=== PATIENT | male | born 1955 | race African-American/Black ===

== ENCOUNTER 2024-04-30 03:35 | Inpatient (IN) | payer OTHER ==
[~2024-04-30] VITALS: Ht 320 cm; Wt 64.9 kg
[2024-04-30 05:10] LABS: BASOPHILS % 0.4 % (0.0-2.0); HEMATOCRIT. 40.4 % (42.0-52.0); HEMOGLOBIN. 13.2 g/dL (14.0-18.0); LYMPHOCYTES % 10.3 % (20.0-50.0); MEAN CORPUSCULAR HEMOGLOBIN 28.9 pg (28.0-32.0); MEAN CORPUSCULAR HGB CONC 32.6 g/dL (31.0-37.0); MEAN CORPUSCULAR VOLUME 88.5 fL (80.0-94.0); MEAN PLATELET VOLUME 8.8 fl (7.4-10.4); MONOCYTES % 2.7 % (2.0-8.0); NEUTROPHILS % 86.6 % (40.0-76.0); PLATELET 295 x1000/uL (130-400); RED BLOOD CELL COUNT 4.56 mill/uL (4.7-6.1); RED CELL DISTRIBUTION WIDTH 14.8 % (11.6-14.6); WHITE BLOOD COUNT 13.6 x1000/uL (4.5-11.0)
[2024-04-30 05:19] LABS: CHLORIDE 103 mEq/L (98-107); POTASSIUM 3.5 mEq/L (3.5-5.1); SODIUM 139 mEq/L (136-145)
[2024-04-30 05:20] LABS: CARBON DIOXIDE 24 mEq/L (21-32)
[2024-04-30 05:21] LABS: CALCIUM 10.5 mg/dL (8.7-10.4)
[2024-04-30 05:26] LABS: CREATININE 1.2 mg/dL (0.6-1.3); GLUCOSE 132 mg/dL (70-105); UREA NITROGEN BLOOD 11 mg/dL (9-23)
[2024-04-30 05:30] LABS: LACTIC ACID 2.4 mmol/L (0.4-2.0)
[2024-04-30] MEDS: FAMOTIDINE 20MG TABLET PO ONE (05:30)
[2024-04-30] MEDS: ONDANSETRON 4MG ODT PO ONE (05:30)
[2024-04-30 05:35] LABS: TROPONIN I HIGH SENSITIVITY 6 ng/L (3.0-53)
[2024-04-30] MEDS: LACTATED RINGERS IV ONE (05:45)
[2024-04-30] MEDS ORDERED: LEVOFLOXACIN 500MG PREMIX 100 ML IV SCH (07:00)
[2024-04-30] MEDS ORDERED: NITROGLYCERIN 0.4MG TABLET SL SL PRN (07:00)
[2024-04-30] MEDS ORDERED: DOCUSATE SODIUM 100MG CAPSULE PO PRN (07:00)
[2024-04-30] MEDS ORDERED: GUAIFENESIN 200MG/10ML SUGAR FREE UDC PO PRN (07:00)
[2024-04-30] MEDS ORDERED: CLONIDINE 0.1MG TABLET PO PRN (07:00)
[2024-04-30] MEDS ORDERED: ACETAMINOPHEN 325MG TABLET PO PRN ×2 (07:00)
[2024-04-30] MEDS ORDERED: MAGNESIUM/ALUMINUM HYDROXIDE/SIMETHICONE 30ML UDC PO PRN (07:00)
[2024-04-30] MEDS ORDERED: IPRATROPIUM/ALBUTEROL 0.5-3(2.5)MG/3ML NEB NEB PRN (07:00)
[2024-04-30] MEDS ORDERED: ZOLPIDEM TARTRATE 5MG TABLET PO PRN (07:00)
[2024-04-30] MEDS: LACTATED RINGERS 1,000 ML IV SCH (07:00)
[2024-04-30] MEDS ORDERED: KETOROLAC 15MG/ML VIAL IV PRN (07:00)
[2024-04-30 07:46] LABS: IRON 44 ug/dL (65-175); TRIGLYCERIDE 75 mg/dL (0-150)
[2024-04-30 07:47] LABS: LDL CHOLESTEROL 68 mg/dL (5-100)
[2024-04-30 07:48] LABS: *AMPHETAMINES SCREEN URINE NEGATIVE (NEGATIVE); *BARBITURATES SCREEN URINE NEGATIVE (NEGATIVE); *BENZODIAZEPINES SCREEN URINE NEGATIVE (NEGATIVE)
[2024-04-30 07:48] LABS: CHOLESTEROL 129 mg/dL (<200); HDL CHOLESTEROL 47 mg/dL (>55); TOTAL IRON BINDING CAPACITY 327 ug/dl (250-425)
[2024-04-30 07:49] LABS: *COCAINE SCREEN URINE NEGATIVE (NEGATIVE); CANNABINOID URINE SCREEN PRESUMPTIVE POSITIVE (NEGATIVE); CLARITY URINE SL HAZY (CLEAR); COLOR URINE YELLOW (YELLOW); ECSTASY MDMA SCREEN URINE NEGATIVE (NEGATIVE); METHADONE URINE SCREEN NEGATIVE (NEGATIVE); OPIATES URINE SCREEN NEGATIVE (NEGATIVE); PH URINE 8.5 (4.5-8.0); PHENCYCLIDINE URINE SCREEN NEGATIVE (NEGATIVE); PROTEIN URINE 1+ (NEGATIVE)
[2024-04-30 07:50] LABS: GLUCOSE URINE NEGATIVE (NEGATIVE); KETONES URINE 3+ (NEGATIVE); NITRITE URINE NEGATIVE (NEGATIVE); OCCULT BLOOD URINE TRACE (NEGATIVE)
[2024-04-30 07:51] LABS: LEUKOCYTE ESTERASE URINE 3+ (NEGATIVE)
[2024-04-30 07:51] LABS: FOLIC ACID (FOLATE) SERUM 17.42 ng/mL (>5.38)
[2024-04-30 07:52] LABS: VITAMIN B12 SERUM 642 pg/mL (211-911)
[2024-04-30 07:52] LABS: T4 FREE 1.63 ng/dL (0.89-1.76)
[2024-04-30 07:53] LABS: SQUAMOUS EPITHELIAL CELL URINE NONE SEEN /lpf (RARE/1+); WBC URINE TNTC /hpf (0-2)
[2024-04-30 07:54] LABS: BACTERIA URINE 3+; RBC URINE 0-2 /hpf (0-2)
[2024-04-30] MEDS: CEFAZOLIN 1000MG PREMIX 50 ML IV ONE (08:07)
[2024-04-30] MEDS: CEFTRIAXONE 1GM/50ML 50ML IV SCH (08:16)
[2024-04-30] MEDS: ASPIRIN 81MG EC TABLET PO SCH (08:16)
[2024-04-30] MEDS: ASCORBIC ACID 500 MG TABLET PO SCH (08:16)
[2024-04-30] MEDS: ZINC SULFATE 220 MG ( 50 ) CAPSULE PO SCH (08:16)
[2024-04-30] MEDS: ENOXAPARIN 40MG/0.4ML SYR SUBCUT SCH (08:17)
[2024-04-30] MEDS: AMLODIPINE 5MG TABLET PO SCH (08:17)
[2024-04-30] MEDS: IOHEXOL-300 100 ML BOTTLE ONE (08:18)
[2024-04-30] MEDS: ONDANSETRON HCL 4MG/2ML INJ IV PRN (08:28)
[2024-04-30 08:30] LABS: ETHANOL BLOOD < 10 mg/dL (<10)
[2024-04-30 12:00] VITALS: PULSE 66; RESP 16; TEMP 36.6696; O2SAT 98
[2024-04-30 16:00] VITALS: PULSE 71; RESP 16; TEMP 36.83628; O2SAT 100
[2024-04-30 17:36] VITALS: BP 148/68; PULSE 66; RESP 16; TEMP 37.1408
[2024-04-30 18:27] LABS: CREATINE KINASE MB FRACTION 1.6 ng/mL (0.5-3.6)
[2024-04-30 20:00] VITALS: BP 114/61; PULSE 79; RESP 18; TEMP 36.78072; O2SAT 98
[2024-04-30 20:10] LABS: HEPATITIS B SURFACE ANTIGEN NEGATIVE (Negative)
[2024-04-30 20:31] LABS: HEPATITIS C AB NON REACTIVE (Neg) (Negative)
[2024-04-30 22:10] VITALS: BP 107/69; PULSE 79; RESP 20; TEMP 36.72516; O2SAT 98
[2024-04-30] MEDS ORDERED: GLIP5TAB22 PO (23:36)
[2024-04-30] MEDS ORDERED: MULT-1146 MT (23:36)
[2024-05-01] VITALS: BP 136/75; PULSE 69; RESP 20; TEMP 37.39188; O2SAT 98
[2024-05-01 04:00] VITALS: BP 155/80; PULSE 61; RESP 18; TEMP 37.28076; O2SAT 98
[2024-05-01 06:17] LABS: CHLORIDE 105 mEq/L (98-107); POTASSIUM 3.5 mEq/L (3.5-5.1); SODIUM 141 mEq/L (136-145)
[2024-05-01 06:20] LABS: CALCIUM 10.1 mg/dL (8.7-10.4); CARBON DIOXIDE 27 mEq/L (21-32)
[2024-05-01 06:25] LABS: CREATINE KINASE MB FRACTION 1.7 ng/mL (0.5-3.6); CREATININE 1.2 mg/dL (0.6-1.3); GLUCOSE 114 mg/dL (70-105); UREA NITROGEN BLOOD 8 mg/dL (9-23)
[2024-05-01 06:26] LABS: TROPONIN I HIGH SENSITIVITY 27 ng/L (3.0-53)
[2024-05-01 06:27] LABS: ALANINE AMINOTRANSFERASE 9 IU/L (10-49); ALBUMIN 4.4 g/dL (3.2-4.8); ASPARTATE AMINOTRANSFERASE 17 IU/L (<34); CREATINE KINASE 171 IU/L (46-171); PHOSPHORUS 3.4 mg/dL (2.5-4.9)
[2024-05-01 06:28] LABS: BILIRUBIN TOTAL 0.6 mg/dL (0.1-1.0); PROTEIN TOTAL 6.9 g/dL (6.0-8.3)
[2024-05-01 06:54] LABS: BASOPHILS % 0.2 % (0.0-2.0); EOSINOPHILS % 0.3 % (0.0-5.0); HEMOGLOBIN. 13.2 g/dL (14.0-18.0); LYMPHOCYTES % 21.8 % (20.0-50.0); MEAN CORPUSCULAR HEMOGLOBIN 29.2 pg (28.0-32.0); MEAN CORPUSCULAR VOLUME 88.5 fL (80.0-94.0); MEAN PLATELET VOLUME 8.7 fl (7.4-10.4); MONOCYTES % 7.9 % (2.0-8.0); NEUTROPHILS % 69.8 % (40.0-76.0); PLATELET 265 x1000/uL (130-400); RED BLOOD CELL COUNT 4.52 mill/uL (4.7-6.1); RED CELL DISTRIBUTION WIDTH 14.6 % (11.6-14.6); WHITE BLOOD COUNT 12.7 x1000/uL (4.5-11.0)
[2024-05-01 08:00] VITALS: BP 183/81; PULSE 63; RESP 18; TEMP 36.55848; O2SAT 99
[2024-05-01] MEDS: FAMOTIDINE 20MG TABLET PO SCH (09:32)
[2024-05-01 12:00] VITALS: BP 167/91; PULSE 68; RESP 18; TEMP 36.78072; O2SAT 100
[2024-05-01 14:00] VITALS: BP 142/68; PULSE 78; TEMP 97.6; O2SAT 98
== END 2024-05-01 15:36 | disposition home or self-care (01) | DRG 871 ==
LOC: ER 03:35 → 5WST 06:23 → 7WST 22:25
PROVIDERS: ADMIT Internal Medicine; ATTEND Internal Medicine
DX: A41.9 Sepsis, unspecified organism (principal); R65.21 Severe sepsis with septic shock; N39.0 Urinary tract infection, site not specified; D63.8 Anemia in other chronic diseases classified elsewhere; E83.51 Hypocalcemia; E11.9 Type 2 diabetes mellitus without complications; E78.00 Pure hypercholesterolemia, unspecified; E83.52 Hypercalcemia; F17.210 Nicotine dependence, cigarettes, uncomplicated; F12.90 Cannabis use, unspecified, uncomplicated; I10 Essential (primary) hypertension; Z79.899 Other long term (current) drug therapy; Z79.4 Long term (current) use of insulin
CPT/HCPCS: 36415; 71045; 74177; 80048; 80053; 80061; 80305; 80320; 81003; 82550; 82553; 82607; 82746; 82962; 83036; 83540; 83550; 83605; 83735; 84100; 84145; 84439; 84443; 84484; 85025; 85379; 86705; 87340; 93005; 93306; 93970; 99291; J0690; J0696; J1650; J2405; J7120; Q0162; Q9967; G0480